=== PATIENT | female | born 1995 | race Caucasian/White ===

== ENCOUNTER → 2016-06-07 | Outpatient (REF) | payer OTHER | LOC: M LAB REF 16:16 | DX: B00.2 Herpesviral gingivostomatitis and pharyngotonsillitis (principal) ==

== ENCOUNTER 2016-10-13 21:33 | Emergency (ER) | payer OTHER, SELFPAY ==
[~2016-10-13] VITALS: Ht 162.6 cm; Wt 49.9 kg
[2016-10-13 23:31] LABS: BASO % 0.4 % (0.0-1.0); EOS # 0.1 K/mm3 (0.0-0.50); EOS % 1.6 % (0.0-3.0); LARGE UNSTAINED CELL # 0.1 K/mm3 (0.0-0.4); LARGE UNSTAINED CELL % 1.7 % (0.0-4.0); LYMPH # 2.1 K/mm3 (1.5-6.5); LYMPH % 25.6 % (24.0-44.0); MEAN CORPUSCULAR HEMOGLOBIN 30.8 pg (27.0-33.0); MEAN CORPUSCULAR HGB CONC 34.1 g/dl (32.0-36.5); MEAN CORPUSCULAR VOLUME 90.3 fl (80.0-96.0); MONO # 0.4 K/mm3 (0.0-0.8); MONO % 4.5 % (0.0-5.0); NEUTROPHILS # 5.2 K/mm3 (1.8-7.7); NEUTROPHILS % 66.3 % (36.0-66.0); PLATELET COUNT, AUTOMATED 314 k/mm3 (150-450); RED CELL DISTRIBUTION WIDTH 11.6 % (11.5-14.5); WHITE BLOOD COUNT 7.8 K/mm3 (4.0-10.0)
[2016-10-14] MEDS ORDERED: metroNIDAZOLE (FLAGYL) 500 MG TAB PO ONE
[2016-10-14] MEDS ORDERED: FLAG500T PO (00:01)
--- NOTE | 2016-10-14 00:10 | REPUSA ---
Clinical history: vaginal bleeding. Findings: Real-time transabdominal ultrasound images of the pelvis were obtained. There is a single l [place] intrauterine . The crown rump length measures 0.3 cm. heart rate measures 102 bpm. There is no evidence of a subchorionic hemorrhage. An anteverted uterus is noted, measuring 4.1 x 4. 8 x 3.8 cm. The uterus demonstrates normal echotexture and echogenicity. The endometrial stripe measu res 3 mm and is within normal limits. The right ovary measures 2.2 x 3.0 x 2.2 cm. The left ovary paul sures 3.5 x 2.2 x 3.0 cm. There is a complex left ovarian cyst measuring 1.3 x 1.7 x 1.2 cm. There is a complex left ovarian cyst. No adnexal masses are seen. Color Doppler flow is seen within both ovar ies. There is no evidence of free fluid. Impression: 1. Single live intrauterine measuring 6 weeks, with a heart rate of 102 bpm. 2. Left ovarian hemorrhagic cyst, likely a corpus luteum cyst.
[2016-10-14 00:15] VITALS: BP 145/88
== END 2016-10-14 00:23 | disposition home or self-care (01) ==
LOC: M ED 21:33
DX: O20.0 Threatened abortion (principal); O23.591 Infection of other part of genital tract in pregnancy, first trimester; O99.011 Anemia complicating pregnancy, first trimester; O34.80 Maternal care for other abnormalities of pelvic organs, unspecified trimester